=== PATIENT | male | born 1965 | race Caucasian/White ===

== ENCOUNTER → 2017-01-28 | Day surgery (SDC) | payer OTHER ==
[~2017-01-28] VITALS: Ht 182.9 cm; Wt 112.0 kg
[~2017-01-28] MED LIST: FLEC1TAB PO; LISI-542 PO; LR 1,000 ML IV SCH; MAGN400C2 PO; METO-207 PO; OXYB5TA PO; PROPOFOL 200 MG/20 ML VIAL As Ordered ONE; TERA10CA3 PO; XARE10TA PO
[2017-01-28 06:36] VITALS: BP 145/88
--- NOTE | 2017-01-28 19:49 | ECGEPIP ---
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
== END | disposition home or self-care (01) ==
LOC: M SDC 05:53
PROVIDERS: ATTEND Internal Medicine Cardiovascular Disease
DX: I48.91 Unspecified atrial fibrillation (principal); Z53.09 Procedure and treatment not carried out because of other contraindication

== ENCOUNTER → 2017-11-21 | Outpatient (CLI) | payer OTHER ==
[2017-11-21 17:51] LABS: PROSTATIC SPECIFIC AG MONITOR 3.96 NG/ML (< 4.0)
== END ==
LOC: M SMT 14:05
DX: R97.20 Elevated prostate specific antigen [PSA] (principal)
CPT/HCPCS: 84153

== ENCOUNTER → 2017-12-31 | Outpatient (CLI) | payer OTHER | LOC: M SLEEP 20:00 | DX: G47.33 Obstructive sleep apnea (adult) (pediatric) (principal) | CPT/HCPCS: 95811 ==

== ENCOUNTER 2019-05-10 09:23 | Emergency (ER) | payer OTHER ==
[~2019-05-10] VITALS: Ht 185.4 cm; Wt 104.5 kg
[~2019-05-10 09:23] MED LIST changes: -LR 1,000 ML IV SCH; -METO-207 PO; +METO1TAB7 PO; -OXYB5TA PO; +OXYB5TAB10 PO; -PROPOFOL 200 MG/20 ML VIAL As Ordered ONE
[2019-05-10] MEDS ORDERED: METOPROLOL TART 25 MG TABLET PO ONE (10:15)
[2019-05-10 10:26] LABS: BASO # 0.1 10^3/uL (0.0-0.2); BASO % 0.7 % (0.0-1.0); EOS # 0.1 10^3/uL (0.0-0.5); EOS % 1.9 % (0.0-3.0); HEMATOCRIT 43.8 % (42.0-52.0); HEMOGLOBIN 15.2 g/dl (13.5-17.5); LYMPH # 1.4 10^3/uL (1.5-5.0); LYMPH % 19.1 % (24.0-44.0); MEAN CORPUSCULAR HEMOGLOBIN 30.5 pg (27.0-33.0); MEAN CORPUSCULAR HGB CONC 34.7 g/dl (32.0-36.5); MEAN CORPUSCULAR VOLUME 87.8 fl (80.0-96.0); MONO # 0.5 10^3/uL (0.0-0.8); MONO % 7.2 % (0.0-5.0); NEUTROPHILS # 5.1 10^3/uL (1.5-8.5); NEUTROPHILS % 70.7 % (36.0-66.0); PLATELET COUNT, AUTOMATED 216 10^3/uL (150-450); RED BLOOD COUNT 4.99 10^6/uL (4.30-6.10); WHITE BLOOD COUNT 7.2 10^3/uL (4.0-10.0)
--- NOTE | 2019-05-10 10:50 | REP ---
CHEST, SINGLE VIEW: There is no evidence of acute infiltrate. No pleural effusion is seen. The heart is normal in size. The mediastinal silhouette is unremarkable. The visualized osseous structures are intact. IMPRESSION: No acute pulmonary disease. Electronically Signed by Jeremy Spencer MD 05/10/2019 11:25 A
[2019-05-10] MEDS: METOPROLOL 5 MG/5 ML VIAL IV SCH ×3 (10:53→11:48)
[2019-05-10 10:57] LABS: BLOOD UREA NITROGEN 18 MG/DL (7-18); CALCIUM LEVEL 8.7 MG/DL (8.5-10.1); CARBON DIOXIDE LEVEL 25 MEQ/L (21-32); CHLORIDE LEVEL 108 MEQ/L (98-107); CPK CREATINE PHOSPHOKINASE 178 U/L (39-308); CREATININE FOR GFR 1.23 MG/DL (0.70-1.30); GLOMERULAR FILTRATION RATE > 60.0 (>56); GLUCOSE, FASTING 159 MG/DL (70-100); MB/CK RELATIVE INDEX 1.69 (< OR =4); NT-PRO BNP 2611 PG/ML (<125); SODIUM LEVEL 139 MEQ/L (136-145); TROPONIN I < 0.02 NG/ML (< 0.10)
[2019-05-10 11:48] VITALS: BP 157/94
[2019-05-10 12:51] VITALS: BP 138/75
--- NOTE | 2019-05-11 06:58 | ECGEPIP ---
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
--- NOTE | 2019-05-11 07:03 | ECGEPIP ---
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
== END 2019-05-10 13:14 | disposition home or self-care (01) ==
LOC: M ED 09:23
DX: I48.91 Unspecified atrial fibrillation (principal); I45.89 Other specified conduction disorders; I10 Essential (primary) hypertension; R06.02 Shortness of breath; R42 Dizziness and giddiness; Z79.899 Other long term (current) drug therapy; Z88.0 Allergy status to penicillin

== ENCOUNTER → 2021-03-11 | Outpatient (REF) ==
[~2021-03-11] MED LIST changes: -LISI-542 PO; +LISI-898 PO
--- NOTE | 2021-03-11 12:16 | REP ---
INDICATION: LBP COMPARISON: None. TECHNIQUE: AP, lateral, coned-down views of the lumbar spine. FINDINGS: Three views of the lumbosacral spine demonstrate satisfactory alignment and lordosis without acute fracture / compression injury or subluxation. Moderate multilevel degenerative changes include endplate sclerosis, osteophytosis, facet hypertrophy and elements of disc space narrowing. IMPRESSION: 1. No acute fracture / compression injury or subluxation. 2. Moderate multilevel degenerative spondylosis. <Electronically signed by Atul Ibarra > 03/11/21 2094
== END ==
LOC: M PLAIMG 11:18
PROVIDERS: ATTEND Internal Medicine
DX: M54.5 Low back pain (principal)